=== PATIENT | female | born 1990 | race Caucasian/White ===

== ENCOUNTER 2017-10-16 03:52 | Emergency (ER) | END 2017-10-16 06:04 | disposition home or self-care (01) ==

== ENCOUNTER 2017-12-04 12:05 | Emergency (ER) | END 2017-12-04 13:48 | disposition home or self-care (01) ==

== ENCOUNTER 2018-04-03 23:04 | Emergency (ER) | END 2018-04-03 23:54 | disposition left against medical advice (07) ==

== ENCOUNTER 2018-05-01 23:35 | Emergency (ER) | payer SELFPAY ==
[~2018-05-01] VITALS: Ht 162.6 cm; Wt 73.0 kg
[~2018-05-01 23:35] MED LIST: HC30CR25 TOP; HDRP454O TOP; KEN1O TOP
[2018-05-01 23:55] VITALS: Ht 162.6 cm; Wt 73.0 kg
== END 2018-05-02 04:51 | disposition left against medical advice (07) ==
LOC: FTE 23:35
DX: Z53.21 Procedure and treatment not carried out due to patient leaving prior to being seen by health care provider (principal)